=== PATIENT | female | born 1955 | race Caucasian/White ===

== ENCOUNTER 2020-09-16 13:25 | Emergency (ER) | payer MEDICARE, BC ==
[2020-09-16 13:43] LABS: ANION GAP 16.9 mEq/L (7-13); CHLORIDE,CL 102 mmol/L (98-107); SODIUM,NA 139 mmol/L (136-145)
[2020-09-16] MEDS ORDERED: Ondansetron 4 MG/2 ML SDV IVPUSH ONE (13:44)
[2020-09-16] MEDS ORDERED: fentaNYL 100 MCG/2 ML SDV IVPUSH ONE ×2 (13:47→14:16)
[2020-09-16] MEDS ORDERED: Heparin Sodium 5,000 Units/ML Vial IVPUSH ONE (13:53)
[2020-09-16] MEDS ORDERED: Clopidogrel 75 MG Tab PO ONE (13:54)
[2020-09-16] MEDS ORDERED: Heparin Sodium/0.45% NaCl 25,000 UNITS/500 ML BAG IV SCH (14:00)
--- NOTE | 2020-09-16 14:10 | CR ---
EXAMINATION: Chest 1V Frontal SEX: Female AGE: 65 years CLINICAL HISTORY: 65-year-old female with chest pain. Interpretation: No acute cardiopulmonary abnormality. Slight left ventricular configuration but no pulmonary vascular congestion, cephalization of flow, alveolar edema or dependent pleural effusion. (External dcs engineer leads). Curvilinear calcification arch of the otherwise unremarkable aorta. No mediastinal widening. No lung mass, hilar lymphadenopathy or focal lobar consolidation (no infiltrate/atelectasis). Specifically, no abnormal peripheral groundglass" lung densities. No pneumothorax or pneumomediastinum. Midline tracheobronchial airway unremarkable.
[2020-09-16] MEDS ORDERED: Ondansetron 4 MG/2 ML SDV IV ONE (14:16)
--- NOTE | 2020-09-16 17:05 | EDM.PDOC ---
Scribed by Kady Guaman 09/16/20 [id number] for Rebeka Ochoa NP ED HPI GENERAL MEDICAL PROBLEM - General Chief Complaint: Chest Pain Stated Complaint: AMBULANCE Time Seen by Provider: 09/16/20 13:35 Source of Information: Reports: Patient, EMS, EMS Notes Reviewed, RN, RN Notes Reviewed History Limitations: Reports: No Limitations - History of Present Illness INITIAL COMMENTS - FREE TEXT/NARRATIVE: Patient is a 65-year-old female who presents to ER per [facility] with complaint of chest pain. Patient states chest pain began at 11:30 today at rest. She was sleeping. The pain woke her up--in left side of back and then moved to center--moved into left shoulder. She has some radiation into the neck and left arm. She also has nausea. Patient has had 2 doses of nitro and ASA 500mg at home. Onset: Today Duration: Constant Location: Reports: Chest Quality: Reports: Ache Severity: Severe Improves with: Reports: None Worsens with: Reports: None Associated Symptoms: Reports: No Other Symptoms Left Posterior Shoulder Pain Score (Numeric/FACES): 7 - Related Data Allergies Allergy/AdvReac Type Severity Reaction Status Date / Time No Known Allergies Allergy Verified 09/16/20 13:43 Past Medical History Cardiovascular History: Reports: Other (See Below) Other Cardiovascular History: ascending aortic aneurysm Social & Family History - Tobacco Use Tobacco Use Status *Q: Never Tobacco User Second Hand Smoke Exposure: No - Caffeine Use Caffeine Use: Reports: None - Recreational Drug Use Recreational Drug Use: No ED ROS GENERAL - Review of Systems Review Of Systems: Comprehensive ROS is negative, except as noted in HPI. ED EXAM, GENERAL - Physical Exam Exam: See Below Exam Limited By: No Limitations General Appearance: Alert, WD/WN, No Apparent Distress Eye Exam: Bilateral Eye: EOMI, Normal Inspection, PERRL Ears: Normal External Exam, Normal Canal, Hearing Grossly Normal, Normal TMs Nose: Normal Inspection, Normal Mucosa, No Blood Throat/Mouth: Normal Inspection, Normal Lips, Normal Teeth, Normal Gums, Normal Oropharynx, Normal Voice, No Airway Compromise Head: Atraumatic, Normocephalic Neck: Normal Inspection, Supple, Non-Tender, Full Range of Motion Respiratory/Chest: No Respiratory Distress Cardiovascular: Normal Peripheral Pulses, Regular Rate, Rhythm, No Edema, No Gallop, No JVD, No Murmur, No Rub GI/Abdominal: Normal Bowel Sounds, Soft, Non-Tender, No Organomegaly, No Distention, No Abnormal Bruit, No Mass (Female) Exam: Deferred Rectal (Female) Exam: Deferred Back Exam: Normal Inspection, Full Range of Motion, NT Extremities: Normal Inspection, Normal Range of Motion, Non-Tender, Normal Capillary Refill, No Pedal Edema Neurological: Alert, Oriented, CN II-XII Intact, Normal Cognition, Normal Gait, Normal Reflexes, No Motor/Sensory Deficits Psychiatric: Flat Affect Skin Exam: Pallor Lymphatic: No Adenopathy Course - Vital Signs Last Recorded V/S: Last Vital Signs Temp 96.1 F L 09/16/20 13:26 Pulse 71 09/16/20 13:26 Resp 18 09/16/20 13:26 BP 107/73 09/16/20 13:26 Pulse Ox 99 09/16/20 13:26 - Orders/Labs/Meds Labs: Laboratory Tests 09/16/20 09/16/20 09/16/20 Range/Units 13:15 13:15 13:15 WBC 8.4 (5.0-10.0) 10^3/uL RBC 4.44 (4.2-5.4) 10^6/uL Hgb 14.1 (12.0-16.0) g/dL Hct 40.4 (37.0-47.0) % MCV 91.0 (80-100) fL MCH 31.8 (27.0-34.0) pg MCHC 34.9 (33.0-35.0) g/dL Plt Count 313 (150-450) 10^3/uL Neut % (Auto) 44.8 (42.2-75.2) % Lymph % (Auto) 44.0 (20.5-50.1) % Hoke % (Auto) 8.6 H (2-8) % Eos % (Auto) 2.0 (1.0-3.0) % Baso % (Auto) 0.6 (0.0-1.0) % PT 10.4 (9.0-12.0) SEC INR 1.1 (0.9-1.2) D-Dimer, Quantitative < 100 (0-400) ng/mL Sodium 139 (136-145) mmol/L Potassium 2.9 L (3.5-5.1) mmol/L Chloride 102 (98-107) mmol/L Carbon Dioxide 23 (21-32) mmol/L Anion Gap 16.9 H (7-13) mEq/L BUN 25 H (7-18) mg/dL Creatinine 1.04 H (0.55-1.02) mg/dL Est Cr Clr Drug Dosing TNP Estimated GFR (MDRD) 53 BUN/Creatinine Ratio 24.0 (No establ ref range) Glucose 131 H (74-99) mg/dL Calcium 9.2 (8.5-10.1) mg/dL Total Bilirubin 0.3 (0.2-1.0) mg/dL AST 17 (15-37) U/L ALT 27 (14-59) U/L Alkaline Phosphatase 87 (46-116) U/L Troponin I 0.044 (0.000-0.056) ng/mL B-Natriuretic Peptide 8 (0-100) pg/ml Total Protein 7.2 (6.4-8.2) g/dL Albumin 3.8 (3.4-5.0) g/dL Globulin 3.4 Albumin/Globulin Ratio 1.1 Meds: Medications Discontinued Medications Generic Name Dose Route Start Last Admin Trade Name Freq PRN Reason Stop Dose Admin Clopidogrel Bisulfate 600 mg 09/16/20 13:54 09/16/20 14:02 Plavix PO 09/16/20 13:55 600 mg ONETIME ONE Administration Fentanyl 50 mcg 09/16/20 13:47 09/16/20 13:53 Sublimaze IVPUSH 09/16/20 13:48 50 mcg ONETIME ONE Administration Fentanyl 25 mcg 09/16/20 14:16 09/16/20 14:26 Sublimaze IVPUSH 09/16/20 14:17 25 mcg ONETIME ONE Administration Heparin Sodium (Porcine) 4,000 units 09/16/20 13:53 09/16/20 13:59 Heparin Sodium IVPUSH 09/16/20 13:54 4,000 units .BOLUS ONE Administration Heparin Sodium/Sodium Chloride 25,000 units in 500 mls @ 16.765 mls/hr 0 14:00 09/16/20 13:59 Heparin 25,000 Units In 1/2 Ns 500 Ml IV 12 units/kg/hr TITRATE JOSÉ 16.765 mls/hr Administration Protocol 12 UNITS/KG/HR Ondansetron HCl 4 mg 09/16/20 13:44 09/16/20 13:48 Zofran IVPUSH 09/16/20 13:45 4 mg ONETIME ONE Administration Ondansetron HCl 4 mg 09/16/20 14:16 09/16/20 14:25 Zofran IV 09/16/20 14:17 4 mg ONETIME ONE Administration - Radiology Interpretation Free Text/Narrative:: Chest xray: No acute findings See rad report - Re-Assessments/Exams Free Text/Narrative Re-Assessment/Exam: 09/16/20 17:02 Discuss[address] patient case with Dr. Ricci, Diamond Sizer at [facility], who accepts the patient for transfer to [facility]. He requests the patient get Brilinte 180mg. We do not carry this medication at this time. He then requested Plavix 600mg. He also requested Heparin Bolus and drip to be started. Patient transferred to [facility] via [employer]. Departure - Departure Time of Disposition: 14:30 Disposition: DC/Tfer to Acute Hospital 02 Reason for Transfer *Q: Other Condition: Fair, Serious Clinical Impression: STEMI (ST elevation myocardial infarction) Qualifiers: Involved coronary artery: unspecified coronary artery Qualified Code(s): I21.3 - ST elevation (STEMI) myocardial infarction of unspecified site Referrals: PCP,Not In Area [Primary Care Provider] - Forms: ED Department Discharge, Interfacility Transfer [facility] Sepsis Event Note (ED) - Evaluation Sepsis Screening Result: No Definite Risk - Focused Exam Vital Signs: Vital Signs Temp Pulse Resp BP Pulse Ox 09/16/20 13:26 96.1 F L 71 18 107/73 99 I have read and agree with the documentation that has been completed regarding this visit. By signing this record, I attest that the documentation was completed in my physical presence and is an accurate record of the encounter.
== END 2020-09-16 14:30 ==
LOC: DL.ED 13:25
DX: I21.3 ST elevation (STEMI) myocardial infarction of unspecified site (principal)
CPT/HCPCS: 36415; 71045; 80053; 83880; 84484; 85025; 85379; 85610; 93005; 96365; 96375; 96376; 99285; A9270; J1644; J2405; J3010

== ENCOUNTER 2023-10-17 10:49 | Emergency (ER) | payer MEDICARE ==
[2023-10-17] MEDS ORDERED: Ketorolac 30 MG/ML SDV IM ONE (11:16)
[2023-10-17] MEDS ORDERED: Orphenadrine 60 MG/2 ML Inj IM ONE (11:17)
[2023-10-17] MEDS ORDERED: HYDROmorphone 1 MG/ML Syringe IM ONE (11:17)
[2023-10-17] MEDS ORDERED: Take Home: predniSONE 20 MG, 4 Tab Pack PO ONE (11:19)
== END 2023-10-17 11:50 | disposition home or self-care (01) ==
LOC: DL.ED 10:49
DX: M54.16 Radiculopathy, lumbar region (principal); I25.2 Old myocardial infarction; Z79.82 Long term (current) use of aspirin; Z79.01 Long term (current) use of anticoagulants; Z95.5 Presence of coronary angioplasty implant and graft
CPT/HCPCS: 96372; 99283; A9270-GY; J1170; J1885; J2360

== ENCOUNTER 2023-10-18 11:49 | Emergency (ER) | payer MEDICARE | END 2023-10-18 12:52 | disposition home or self-care (01) | LOC: DL.ED 11:49 | DX: M53.3 Sacrococcygeal disorders, not elsewhere classified (principal); I10 Essential (primary) hypertension; I25.2 Old myocardial infarction; M19.90 Unspecified osteoarthritis, unspecified site; Z79.82 Long term (current) use of aspirin; Z79.02 Long term (current) use of antithrombotics/antiplatelets; Z79.899 Other long term (current) drug therapy | CPT/HCPCS: 99282; 99283 ==